=== PATIENT | female | born 1980 | race African-American/Black ===

== ENCOUNTER 2016-11-29 23:15 | Emergency (ER) | payer OTHER ==
[~2016-11-29] VITALS: Ht 188 cm; Wt 73.5 kg
[~2016-11-29 23:15] MED LIST: HYDROCORTI2.5 %/30 G TOP
--- NOTE | 2016-11-29 23:41 | ED INFLUENZA/URI COMPLAINT ---
History of Present Illness General Chief Complaint: General Adult Stated Complaint: BODY ACHES X 2 DAYS Source: patient, old records Exam Limitations: no limitations Vital Signs & Intake/Output Vital Signs & Intake/Output Vital Signs Date Time Temp Pulse Resp B/P Pulse O2 O2 Flow FiO2 Ox Delivery Rate 11/30 0044 98.1 78 16 120/86 97 Room Air 11/29 2340 98.0 78 16 121/78 96 Room Air ED Intake and Output 11/30 0000 11/29 1200 Intake Total 0 Output Total Balance 0 Intake, Oral 0 Patient 162 lb Weight Allergies Coded Allergies: NO KNOWN ALLERGIES (12/12/13) Reconcile Medications Hydrocortisone 1 % CREAM..G. 1 FILM TOP BID PRN INSECT BITE Oseltamivir Phosphate (Tamiflu) 75 MG CAPSULE 1 CAP PO BID INFLUENZA Triage Note: PT TO ED COMPLAINING OF HEADACHE, SORE THROAT AND BODY ACHES X2 DAYS. PT STATES SHE HAD A FEVER EARLIER. Triage Nurses Notes Reviewed? yes HPI: Patient presents complaining of 2 day history of myalgias, fevers, chills and a sore throat. Patient states the throat is sharp and is exacerbated when she swallows. She denies any difficulty breathing. Patient states that she is able to swallow it just hurts do so. The myalgias are and achy pain and they are diffuse. There are no aggravating or mitigating factors. She rates the myalgias as 8 out of 10. She rates the throat pain at 6 out of 10. Past History Travel History Traveled to [place] past 21 day No Medical History Any Pertinent Medical History? none Surgical History Surgical History: non-contributory Psychosocial History Who do you live with Family Services at Home None What is your primary language Malay Tobacco Use: Current Daily Use Daily Tobacco Use Amount/Type: => 5 Cigarettes daily ETOH Use: occasional use Illicit Drug Use: denies illicit drug use Family History Hx Contributory? No Review of Systems Review of Systems Constitutional: Reports: see HPI, chills, fever. EENTM: Reports: see HPI, throat pain. Respiratory: Reports: no symptoms. Cardiovascular: Reports: no symptoms. GI: Reports: no symptoms. Genitourinary: Reports: no symptoms. Musculoskeletal: Reports: muscle pain (MYALGIAS). Skin: Reports: no symptoms. Neurological/Psychological: Reports: no symptoms. Hematologic/Endocrine: Reports: no symptoms. Immunologic/Allergic: Reports: no symptoms. All Other Systems: Reviewed and Negative Physical Exam Physical Exam General Appearance: well developed/nourished, alert, awake, anxious, moderate distress Head: atraumatic, normal appearance Eyes: Bilateral: PERRL, EOMI. Ears, Nose, Throat: moist mucous membrane, Tympanic normal, pharyngeal erythema Neck: normal inspection, supple, lymphadenopathy (L) Respiratory: normal breath sounds, chest non-tender, no respiratory distress, lungs clear Cardiovascular: regular rate/rhythm, normal peripheral pulses Gastrointestinal: normal bowel sounds, soft, non-tender, no organomegaly Back: normal inspection, normal range of motion Extremities: normal inspection, normal capillary refill, normal range of motion, no edema Neurologic/Psych: no motor/sensory deficits, awake, alert, oriented x 3, normal gait, normal mood/affect Skin: intact, normal color, warm/dry Lymphatic: adenopathy Core Measures Severe Sepsis Present: No Septic Shock Present: No Progress Differential Diagnosis: influenza, pharyngitis, sinusitis Plan of Care: Orders Procedure Date/time Status RAPID VIRAL INFLUENZA A 11/29 2337 Complete THROAT CULTURE W/QUICK STREP 11/29 2337 Active Initial ED EKG: none Departure Departure Disposition: HOME OR SELF CARE Condition: Stable Clinical Impression Primary Impression: Viral syndrome Referrals: PATIENT HAS NO PRIMARY CARE DR (PCP/Family) Additional Instructions: DRINK PLENTY OF FLUIDS RETURN IF SYMPTOMS WORSEN OR FOR ANY CONCERNS Departure Forms: Customer Survey General Discharge Information Prescriptions: Current Visit Scripts Oseltamivir Phosphate (Tamiflu) 1 CAP PO BID #10 CAP
[2016-11-30] MEDS ORDERED: TAMIFLU75 M1 PO (00:38)
[2016-11-30 00:44] VITALS: BP 120/86
== END 2016-11-30 00:46 ==
LOC: ERH 23:15
DX: B34.9 Viral infection, unspecified (principal)
CPT/HCPCS: 87804; 87804-59

== ENCOUNTER → 2018-06-08 | Day surgery (SDC) | payer OTHER ==
[~2018-06-08] VITALS: Ht 185.4 cm; Wt 68.0 kg
[~2018-06-08] MED LIST changes: +ADVIL200 M1 PO; +CYCLOBENZAPRINE5 M2 PO; +MOBIC15 M1 PO; +TAMIFLU75 M1 PO; +XANAX0.5 M1 PO
--- NOTE | 2018-06-08 12:54 | Operative Report ---
Operative/Inv Procedure Report Surgery Date: 06/08/18 Name of Procedure: Right partial mastectomy with sentinel lymph node biopsy Pre-Operative Diagnosis: Right breast cancer Post-Operative Diagnosis: Same Estimated Blood Loss: less than 50ml Surgeon/Psychosocial Rehabilitation Counselor: Patricia Wilson MD Anesthesia: laryngeal mask airway Specimens: Right lumpectomy, cranial margin, medial margin, caudal margin, lateral margin, skin margin, sentinel lymph node Operative/Procedure Note Note: Patient noticed a right breast mass. Biopsy was performed and showed invasive breast cancer. Is clinical stage I breast cancer and was brought for definitive surgical therapy. She brought to the operating room on 06/08/2018 after preoperative lymphoscintigraphy was performed and those films were reviewed. Anesthesia was demonstrated and 2 g of Ancef was administered. The right breast was prepped and draped in sterile fashion using ChloraPrep. 3 mL of methylene blue diluted with 2 mL of saline was injected in the retroareolar fashion. An incision was planned in the axilla. Local anesthesia of 1% lidocaine with Renetta percent Marcaine was given. Incision was made in the axilla. Tumor was identified in the upper outer quadrant and was palpable. The breast tissue was dissected off pectoralis fascia to extend medial to the palpable mass. Dissection then began in the subcutaneous plane in a similar fashion. The breast tissue was dissected around the mass to perform generous lumpectomy. Margin map was used to fabiola the orientation and intraoperative x-ray confirmed the presence of the clip. Additional margins were taken in the medial, lateral, caudal, and cranial positions as well as skin. Overlying the skin margin subcutaneous tissue was present at a low the dermis. Pectoralis muscle was in the inferior aspect of the lumpectomy bed. Rest tissue was mobilized superior and inferior to the lumpectomy cavity. Hemostasis was achieved using electrocautery and Vicryl sutures were used to approximate the breast tissue to close the defect. The axilla was then approached. Clavipectoral fascia was entered. A lymph node was identified with increased radionucleotide uptake. No other hot, blue, or palpable lymph nodes were identified in the axilla. Hemostasis was adequate and the skin incisions were closed using Vicryl sutures. Dressings applied and the patient was transferred to the recovery room in satisfactory condition having tolerated the procedure well.
== END ==
LOC: STS 05-28 05:15
DX: C50.411 Malignant neoplasm of upper-outer quadrant of right female breast (principal); Z17.0 Estrogen receptor positive status [ER+]; F17.200 Nicotine dependence, unspecified, uncomplicated
CPT/HCPCS: 81025; J0131; J0690; J2250; Q9968